=== PATIENT | male | born 1950 | race Two or more races ===

== ENCOUNTER 2024-01-05 18:10 | Emergency (ER) | payer MEDICARE, MEDICAID, SELFPAY ==
[2024-01-05 18:31] VITALS: BP 151/69; PULSE 99; RESP 20; TEMP 37.2; O2SAT 98
[2024-01-05 18:45] VITALS: PULSE 100; RESP 16; O2SAT 100
[2024-01-05 19:50] VITALS: BP 147/74; PULSE 99; RESP 16; TEMP 36.4; O2SAT 95
--- NOTE | 2024-01-05 20:48 | XR_ITS ---
Examination: Venous duplex lower extremity sonogram, bilateral. Date and time of exam: January 05, 2024 1021 hrs. Indications: Bilateral leg pain beginning 6 months ago bilateral leg swelling beginning one month ago Technique: Multiple sonographic images of the deep venous system have been obtained. B-mode/2-D grayscale imaging of vascular structures and Doppler spectral analysis (waveforms) and color performed Both legs are examined. Findings: Deep venous systems do not demonstrate abnormal echogenicity. All visualized deep veins exhibit compressibility. All visualized deep veins exhibit augmentation. Impression: Negative for deep vein thrombosis
--- NOTE | 2024-01-05 20:49 | XR_ITS ---
Examination: AP chest single view Technique one AP portable semiupright chest single view Exam date and time: January 05, 2024 2109 hrs. Comparison February 08, 2012 Indications: Shortness of breath today. Findings: No significant cardiac enlargement No pneumonia or pulmonary edema Old appearing clavicle fracture on the left but clinical correlation advised Impression: No pneumonia or pulmonary edema
--- NOTE | 2024-01-05 20:49 | EDNOTE_ITS ---
ED Extremity Problem RME/HPI General Chief complaint: Extremity Problem,Nontraumatic Stated complaint: BILATERAL LEG PAIN Time Seen by Provider: 01/05/24 20:21 Arrival date/time: 01/05/24 18:10 This is a 73-year-old male that is brought in by ambulance with complaints of bilateral leg pain. Patient states he was released from [facility] yesterday and was dropped off in the residence in [place]. Per patient, Hospital transport dropped off patient at someone else's residence. patient states he did not know who lived there and then ambulance was called because patient was in residents front yard. It is unknown if it was for a couple of hours or for a day. Patient wheelchair-bound and has an electric wheelchair. Patient appears to be incontinent of urine and stool. Patient smells of urine. Patient states that he sometimes walks but states he uses a wheelchair all the time. Patient admits to drug use in the past. Patient reports methamphetamine use in the past patient reports that he is homeless. I obtained medical records from [facility] [place] and it appears that he was discharged from the hospital from the emergency room on01/04/24. Per [facility] notes, patient had a history of polio and that is why he has chronic leg pain and is in a wheelchair. It also appears that patient has been going to the emergency room at [facility] very frequently over the past few days almost daily for same complaints of chronic leg pain. Patient reports he cannot take care of himself. Related Data Previous Rx's ?Medication ?Instructions ?Recorded acetaminophen 300 mg-codeine 30 mg 1 tab PO Q6H PRN pain #12 tabs 04/05/17 tablet (Tylenol-Codeine #3) cephalexin 500 mg capsule (Keflex) 500 mg PO Q8H #30 caps 04/05/17 ibuprofen 600 mg tablet 600 mg PO Q8H PRN fever #30 tabs 04/20/17 fluconazole 150 mg tablet 150 mg PO Q OTHER DAY #5 tabs 06/29/19 (Diflucan) nystatin 100,000 unit/gram topical 1 applicatio topical BID #30 grams 06/29/19 cream cephalexin 500 mg tablet 500 mg PO BID #20 tabs 01/19/20 tamsulosin 0.4 mg capsule (Flomax) 0.4 mg PO QDAY #20 caps 01/19/20 Allergies Allergy/AdvReac Type Severity Reaction Status Date / Time tetanus and diphtheria Allergy FEELS FUNNY Verified 01/31/20 08:31 toxoids Review of Systems Review of Systems Systems Reviewed: All systems reviewed, normal except as documented Past Medical History Past Medical History CARDIAC: Negative Cardiac Disorders or Congestive Heart Failure RESPIRATORY: Negative Chronic Obstructive Pulmonary Disease (COPD) GENITOURINARY: Negative Renal Disease ENDOCRINE: Negative Diabetes Mellitus Type 1 or Diabetes Mellitus Type 2 Family History FAMILY HISTORY: Negative Family Cardiac Disorders Surgical History SURGICAL: Positive Abdominal Surgery Social History SMOKING STATUS: Never smoker ED Exam General General appearance: Present alert and other (Patient smells of urine and stool.) Head Head exam: Present atraumatic Eye Eye exam: Present PERRL and EOMI ENT ENT exam: Present normal exam, normal oropharynx and mucous membranes moist Neck Neck exam: Present normal inspection, full ROM and trachea midline Chest Chest inspection: Present normal inspection and symmetric chest wall rise Respiratory Respiratory exam: Present normal lung sounds bilaterally Cardiovascular Cardiovascular exam: Present regular rate, normal rhythm and normal heart sounds Abdominal Exam Abdominal exam: Present soft and other (Soft and nontender to palpation) Extremities Exam Extremities exam: Present full ROM Back Exam Back exam: Present full ROM Neurological Exam Neurological exam: Present alert and oriented X3 Psychiatric Psychiatric exam: Present normal affect and normal mood Skin Skin exam: Present warm, dry and other (Patient's buttock area appears very irritated and excoriated.) Course Quality Measures none Orders Category Date Time Status Consult Manager Interface NOW Care 01/05/24 23:55 Completed Diet Regular Diet 01/06/24 Breakfast Active US venous doppler LE BI Stat Exams 01/05/24 20:48 Completed XR chest 1V Stat Exams 01/05/24 20:49 Completed CBC Stat Lab 01/05/24 21:37 Completed CRP [C-Reactive Protein] Stat Lab 01/05/24 21:37 Completed Comprehensive Metabolic Panel Stat Lab 01/05/24 21:37 Completed Drug Screen,Urine Stat Lab 01/06/24 03:59 Completed PT [Prothrombin Time with INR] Stat Lab 01/05/24 21:37 Completed Urinalysis, C/S if Indicated Stat Lab 01/06/24 03:59 Completed Acetaminophen Tab [Tylenol ES Tab] Med 01/05/24 20:48 Discontinued 1,000 mg PO X1 ONE Vital Signs Vital signs: Vital Signs Temperature 98.9 F 01/05/24 18:31 Pulse Rate 99 01/05/24 18:31 Respiratory Rate 20 01/05/24 18:31 Blood Pressure 151/69 H 01/05/24 18:31 Pulse Oximetry (%) 98 01/05/24 18:31 Oxygen Delivery Method Room Air 01/05/24 18:31 Extremity Problem MDM Narrative MDM Narrative:: This is a 73-year-old male that is brought in by ambulance with complaints of bilateral leg pain. Patient states he was released from [facility] yesterday and was dropped off in the residence in [place]. Per patient, Hospital transport dropped off patient at someone else's residence. patient states he did not know who lived there and then ambulance was called because patient was in residents front yard. It is unknown if it was for a couple of hours or for a day. Patient wheelchair-bound and has an electric wheelchair. Patient appears to be incontinent of urine and stool. Patient smells of urine. Patient states that he sometimes walks but states he uses a wheelchair all the time. Patient admits to drug use in the past. Patient reports methamphetamine use in the past patient reports that he is homeless. I obtained medical records from [facility] [place] and it appears that he was discharged from the hospital from the emergency room on 01/04/24. Per [facility] notes, patient had a history of polio and that is why he has chronic leg pain and is in a wheelchair. It also appears that patient has been going to the emergency room at [facility] very frequently over the past few days almost daily for same complaints of chronic leg pain. Patient reports he cannot take care of himself Patient resting comfortably in room since arrival. Patient got a dose of Tylenol and seem to help his pain. Labs reviewed patient has no elevation in white count. White count is 8.5. Hemoglobin 10.1 hematocrit 29.3. Coags unremarkable. Patient CMP unremarkable. CRP 8.2. Chest x-ray shows no acute infection. And venous Doppler shows no DVT. It appears that patient has not had multiple workups done at [facility] and other hospitals. Will need to wait until the morning to have evaluation by our manager social responsibility team. Patient may need placement. Patient reports he cannot take care of himself. Dr. Brennan will assume patient care 2330 and await his urine results. chest x ray: Findings: No significant cardiac enlargement No pneumonia or pulmonary edema Old appearing clavicle fracture on the left but clinical correlation advised Impression: No pneumonia or pulmonary edema. venous doppler: Findings: Deep venous systems do not demonstrate abnormal echogenicity. All visualized deep veins exhibit compressibility. All visualized deep veins exhibit augmentation. Impression: Negative for deep vein thrombosis Patient data External records reviewed:: [facility] previous records and Other (specify) (obtained records from [facility] ) Clinical information provided by:: patient Social determinants that could affect healthcare access:: substance use Patient has the following chronic illnesses:: see note How is presenting disease/condition affected by chronic disease/condition?: exacerbated by Evaluation data The following diagnostics were reviewed and interpreted by me:: lab results and radiology exam(s) Lab and/or radiology exams considered but not ordered:: none Interpretation Summary: see note Medications / Prescriptions Medications or Prescriptions considered but not ordered:: none Medication administrations:: Medication Administration History Discontinued Medications Acetaminophen (Acetaminophen 500 Mg Tablet) 1,000 mg PO X1 ONE Stop: 01/05/24 20:49 Last Admin: 01/05/24 20:55 Dose: 1,000 mg Documented By: SF see [facility] Consultations Consultation(s) initiated? (list below): No Diagnosis Most likely diagnosis given after review of the tests above:: polysubstance abuse Admission Indicated Admission indicated?: not indicated Admission Request Was there a request for admission?: No Disposition Plan Disposition Plan: Discharge Discharge Attestation Discharge Attestation: The patient and all family members were given an opportunity to ask questions and understood the discharge instructions. Discharge instructions specifically effects, indications for sooner follow up or return to the emergency department, and the expected course of current diagnosis. Patient condition: Stable Discharge Plan Plan Patient Disposition: HOME (Self Care) Prescriptions/Referrals Prescriptions/Med Rec: No Action acetaminophen-codeine [Tylenol-Codeine #3] 300-30 mg tablet 1 tab PO Q6H PRN (Reason: pain) Qty: 12 0RF cephalexin [Keflex] 500 mg capsule 500 mg PO Q8H Qty: 30 0RF ibuprofen 600 mg tablet 600 mg PO Q8H PRN (Reason: fever) Qty: 30 0RF fluconazole [Diflucan] 150 mg tablet 150 mg PO Q OTHER DAY Qty: 5 0RF nystatin 100,000 unit/gram cream 1 applicatio TOPICAL BID Qty: 30 0RF cephalexin 500 mg tablet 500 mg PO BID Qty: 20 0RF tamsulosin [Flomax] 0.4 mg capsule 0.4 mg PO QDAY Qty: 20 0RF Referrals: Richard Kwan MD [Primary Care Provider] - In 1 week Problem List Clinical Impression: Polysubstance abuse Patient/Caregiver Discharge Instructions Education Materials: ED Drug Abuse Additional Instructions: Stop using illicit drugs. Follow-up with your primary care doctor and/or [facility] if you feel ready for drug and or alcohol rehabilitation. You can return to the emergency department sooner symptoms worsen or if you notice any new, concerning issues. Print Language: Slovak Stand Alone Forms: [employer] Info., Patient Portal Info Letter
[2024-01-05] MEDS: ACETAMINOPHEN 500 MG TABLET 1000 MG PO (20:55)
[2024-01-05 21:47] LABS: Basophils % (Auto) 0 % (0-2.5); Eosinophils # (Auto) 0.1 Thou/mm3 (0.0-0.5); Eosinophils % (Auto) 1 % (0-10); Hematocrit 29.3 % (41.0-53.0); Hemoglobin 10.1 g/dL (13.5-16.0); Immature Granulocytes % (Auto) 0 % (0-0); Immature Granulocytes Auto 0.03 Thou/mm3 (0.00-0.00); Lymphocytes # (Auto) 1.2 Thou/mm3 (1.0-4.8); Lymphocytes % (Auto) 14 % (10-50); Mean Corpuscular HGB Conc 34.5 g/dl (31.0-37.0); Mean Corpuscular Hemoglobin 29.8 pg (25.0-35.0); Mean Corpuscular Volume 86 fL (80-100); Monocytes # (Auto) 0.7 Thou/mm3 (0.0-0.8); Monocytes % (Auto) 8 % (0-12); Neutrophils # (Auto) 6.5 Thou/mm3 (1.8-7.7); Neutrophils % (Auto) 77 % (37-80); Nucleated Red Blood Cell % 0 /100 WBC (0); Platelet Count 241 Thou/mm3 (140-440); RDW Standard Deviation 40.7 fL (35.1-43.9); Red Blood Count 3.39 Miln/mm3 (4.50-5.90); White Blood Count 8.5 Thou/mm3 (3.8-10.6)
[2024-01-05 22:08] LABS: Alanine Aminotransferase 12 U/L (10-49); Albumin, Serum 3.9 gm/dL (3.4-4.8); Albumin/Globulin Ratio 1.3 (1.2-2.2); Alkaline Phosphatase 87 U/L (46-116); Anion Gap 6 (7-16); Aspartate Amino Transferase 22 U/L (0-34); BUN/Creatinine Ratio 17 Ratio (12-20); Bilirubin,Total 0.5 mg/dL (0.3-1.2); Blood Urea Nitrogen 17 mg/dL (9-23); Calcium 9.5 mg/dL (8.3-10.6); Calcium (Corrected) 9.6 mg/dL (8.5-10.1); Carbon Dioxide 25.9 mMol/L (20.0-31.0); Chloride 105 mMol/L (98-107); Glucose 109 mg/dL (74-106); Osmolality,Calculated 276 (275-295); Potassium 3.9 mMol/L (3.4-5.1); Sodium 137 mMol/L (136-145); Total Protein 6.9 gm/dL (5.7-8.2); eGFR > 60 See Note
[2024-01-05 22:21] LABS: C-Reactive Protein 8.2 mg/dL (0.0-0.9)
[2024-01-05 22:42] LABS: Prothrombin Time 10.9 Seconds (9.0-12.2)
--- NOTE | 2024-01-05 23:18 | EDNOTE_ITS ---
Emergency Room Addendum <Alissa Kwan - Last Filed: 01/06/24 01:13> Addendum Narrative: 2300: Care assumed from Bobbi Gretel. Past medical, surgical, social and family history reviewed. Vitals and home medications reviewed. Results and treatment plan discussed. I will assume the care of the patient at this time and will follow the patient, pending group social worker consultation in the morning. Please refer to the emergency department record for history and examination from initial visit. It appears this patient has a lot of medical problems that is homeless. He was recently discharged from [facility] and taken to a house which was not his house and left there. Patient is pending social work evaluation in the morning for placement. Patient unable to care for himself. OBSERVATION NOTE: The patient was placed in ED observation care at 01/06/2024 at 2300. The patient was placed in ED observation care because of pending group social worker consultation. The patients past medical history, social history, and family history were reviewed. The plan of care will include serial examinations. 0600: Care signed out to the next oncoming provider. Past medical, surgical, social and family history reviewed. Vitals and home medications reviewed. Results and treatment plan discussed. They will assume the care of the patient at this time and will follow the patient, pending group social worker consultation. At this time, observation has ended. <Tracey Mast MD - Last Filed: 01/06/24 01:10> Addendum Narrative: 2300: Care assumed from Bobbi Majano. Past medical, surgical, social and family history reviewed. Vitals and home medications reviewed. Results and treatment plan discussed. I will assume the care of the patient at this time and will follow the patient, pending group social worker consultation in the morning. Please refer to the emergency department record for history and examination from initial visit. It appears this patient has a lot of medical problems that is homeless. He was recently discharged from [facility] and taken to a house which was not his house and left there. Patient is pending social work evaluation in the morning for placement. Patient unable to care for himself.
[2024-01-06] VITALS (7 sets, daily range): BP systolic 125–151; BP diastolic 46–74; PULSE 75–88; RESP 12–18; TEMP 36.6–36.7; O2SAT 96–100
[2024-01-06 04:03] LABS: Collection Type, Urine Voided; RBC,Urine 0 /hpf (0-3); WBC,Urine 0 /hpf (0-5)
[2024-01-06 04:16] LABS: Bacteria,Urine Rare; Bilirubin,Urine Negative (Negative); Blood,Urine Negative (Negative); Clarity,Urine Clear (Clear/Hazy); Color,Urine Yellow (Lt Yel-Yel); Culture Indicated,Urine Not Indicated; Glucose, Urine Negative (Negative); Ketones,Urine Negative (Negative); Leukocyte Esterase,Urine Negative (Negative); Nitrite,Urine Negative (Negative); Protein,Urine Trace (Neg - Trace); Specific Gravity,Urine 1.026 (1.001-1.035); Squamous Epithelial Cell,Urine < 1 /hpf (0-5)
[2024-01-06 04:27] LABS: Amphetamine/Methamp Scrn,U Positive (Negative); Barbiturate Screen,Urine Negative (Negative); Benzodiazepines Screen,Urine Negative (Negative); Benzoylecgonine Screen, Ur Negative (Negative); Fentanyl Screen,Urine Positive (Negative); Opiate Screen,Urine Positive (Negative); THC Screen,Urine Positive (Negative)
--- NOTE | 2024-01-06 07:14 | PD.EDADDENDU ---
Emergency Room Addendum Addendum Narrative: 0600 care assumed by previous shift provider. Past medical, surgical, social and family history reviewed. Vitals and home medications reviewed. Results and treatment plan discussed. I will assume the care of the patient at this time and will follow the patient, pending final disposition.
--- NOTE | 2024-01-06 07:40 | PC.NURSE ---
Report received at this time; per report, pt found lying down in someone's home and homeowners called the press operator assistant on pt. Pt did have positive urine tox screen; pt now just waiting for licensed clinical social worker in the AM. Upon initial assessment, pt uncooperative and yelling at RN; Rn assessed pt's posterior and noted possible pressure injury to sacrum and buttocks area; pt refusing to turn at this time, however, RN able to place foam dressing on pt's L buttocks and midline sacrum.
--- NOTE | 2024-01-06 08:50 | PC.NURSE ---
Pt given his breakfast chanell; healthcare liaison Ramez also at bedside & gave pt homeless resources. Pt currently wearing appropriate clothing for the weather. Pt eating now.
--- NOTE | 2024-01-06 17:04 | PC.CC ---
Pt Alhaji King is a 73 yr old male to ED on 01/05/2024, after local home drain layer contacted EMS and law enforcement after pt was noted to be dropped on their front lawn. From EMS report pt was D/c from [facility] ED and transported to unknown address. Pt brought to [facility] where he was evaluated and medically cleared for SS consult. Of Note pt seen in ED by SS on 11/15/23, after leaving [facility] from [facility]. Pt kept in ED and placed in petroleum terminal plant operator care facility @ [facility] in [facility] at pts request. Pt noted to be motorized wheelchair dependent. Pts current toxicology screening positive for opiates, fentanyl, THC and meth. Pt reporting being homeless. From SS notes family was contacted prior to pts placement in [facility], and family unable/unwilling to aid in caring for pt. GAS CHECK PAD MAKER CC attempted to meet with pt at bedside, after pt was noted being verbally abusive to bedside RN. GAS CHECK PAD MAKER CC introduced self and role in pt care. Pt immediately told GAS CHECK PAD MAKER CC that he is ready to get dressed and is wanting to D/c. Pt is noted to be alert and oriented to person, place and situation. GAS CHECK PAD MAKER CC spoke with ED attending who will D/c pt to his own care. Pt noted to have weather appropriate clothing. Pt having breakfast and was provided with other food items. Pts electric wheelchair had been chaired overnight. Pt provided with homeless backpack-which includes a blanket and other cool weather items. SS to remain available as needed for pt care and staff support.
== END 2024-01-06 09:52 | disposition home or self-care (01) ==
PROVIDERS: Nurse Practitioner Family; Emergency Provider Emergency Medicine; PCP Family Medicine
DX: F19.10 Other psychoactive substance abuse, uncomplicated (principal); R06.02 Shortness of breath; M79.605 Pain in left leg; M79.604 Pain in right leg; B91 Sequelae of poliomyelitis; G89.29 Other chronic pain; Z99.3 Dependence on wheelchair; Z59.00 Homelessness unspecified
CPT/HCPCS: 36415; 71045; 80053; 80307; 81001; 85025; 85610; 86140; 93970; 99284; A9270